=== PATIENT | female | born 1970 | race Caucasian/White ===

== ENCOUNTER 2016-09-23 12:41 | Emergency (ER) | payer OTHER ==
[~2016-09-23] VITALS: Ht 160 cm; Wt 105.2 kg
[~2016-09-23 12:41] MED LIST: SYNTHROID75 MCG PO; VITAMIN B-121000 MC2 SL; VITAMIN D-32000 UNIT PO
--- NOTE | 2016-09-23 13:27 | ED INFLUENZA/URI COMPLAINT ---
History of Present Illness General Chief Complaint: Upper Respiratory Sx/Fever Stated Complaint: SORE THROAT;URI Source: patient, old records Exam Limitations: no limitations Vital Signs & Intake/Output Vital Signs & Intake/Output Vital Signs Date Time Temp Pulse Resp B/P Pulse O2 O2 Flow FiO2 Ox Delivery Rate 09/23 1519 98.1 72 18 118/70 98 Room Air 09/23 1430 Room Air Room Air 09/23 1428 97.3 09/23 1428 97.3 09/23 1245 97.3 73 20 110/70 96 Room Air Allergies Coded Allergies: peanut (Severe, ANAPHYLAXIS 06/02/16) amoxicillin (Intermediate, RASH 06/02/16) latex (Intermediate, RASH 06/02/16) Reconcile Medications Azithromycin (Zithromax) 250 MG TABLET 1 DP PO AD BRONCHITIS 2 the first day followed by 1 for days 2-5 Levothyroxine Sodium (Synthroid) 75 MCG TABLET 1 TAB PO DAILY AC THYROID ( Reported) Robitussin AC (Guaifenesin-Codeine Syrup) 200 MG-20 MG/10 ML LIQUID 10 ML PO Q6HR PRN COUGH Triage Note: PT TO ED C/O COUGH, SORE THROAT, URI SINCE 09/19. PT WENT TO HER PCP AND WAS TOLD SHE HAD THE FLU. PT HAS BEEN TAKING OTC MEDS WITH SOME RELIEF. PT HAD STREP TEST AT PCP WHICH WAS NEGATIVE. ALSO C/O B/L EAR PAIN. NON-PRODUCTIVE COUGH. AFEBRILE. Triage Nurses Notes Reviewed? yes Onset: Gradual Duration: week(s): (1), constant Timing: recent history Severity: mild, moderate Severity Numbers: 5 Prior Episodes/Possible Cause: occassional episodes No Modifying Factors: none Associated Symptoms: cough, muscle aches, nasal congestion, nasal drainage, sore throat : No Patient currently breastfeeds: No HPI: This is a 46-year-old female who presents with a one-week history of a sore throat nonproductive cough and rhinorrhea congestion subjective chills. Patient states that she had a negative strep swab performed by her primary care physician over the weekend and was diagnosed with the flu however states she is not tested for the flu. She's been using [id number] medications without improvement in her symptoms. She does not smoke no history of asthma COPD no chest pain or shortness of breath. No abdominal pain nausea vomiting or diarrhea. She is not taken any Tylenol or ibuprofen today Past History Travel History Traveled to [place] past 21 day No Medical History Any Pertinent Medical History? see below for history Endocrine: hypothyroidism, vitamin D deficiency Surgical History Surgical History: non-contributory Psychosocial History What is your primary language Surinamese Tobacco Use: Never used ETOH Use: denies use Illicit Drug Use: denies illicit drug use Family History Hx Contributory? No Review of Systems Review of Systems Constitutional: Reports: see HPI. All Other Systems: Reviewed and Negative Comments Review of systems: See HPI, All other systems negative. Constitutional, chills no fever, no malaise HEENT: No visual changes no sore throat congestion, no ear pain Cardiovascular: No chest pain , no palpitation , Skin, no rashes, no change in skin Respiratory: No dyspnea cough no sputum no hemoptysis GI: No nausea no vomiting, no diarrhea, no bloating/constipation : No dysuria Muscle skeletal: No joint pain, no back pain, no neck pain, Neurologic: No numbness no headache Psych: No stress Heme/endocrine: No bruising no bleeding Immunology: No lymphadenopathy Physical Exam Physical Exam General Appearance: well developed/nourished, alert, awake Ears, Nose, Throat: normal ENT inspection, moist mucous membrane, hearing grossly normal, Tympanic normal Comments: Well-developed well-nourished person in no acute distress Head/Face: Atraumatic, no maxillary/frontal sinus tenderness, no facial swelling Eyes: PERRL, EOMI, no conjunctival injection. No nystagmus Ear:External auditory canal and Tympanic membranes clear, no erythema, no FB. Nose: atraumatic.Normal inspection: No bleeding, no septal hematoma Throat: Moist mucous membranes.Pharynx normal. No pharyngeal erythema/exudate seen. No stridor/drooling or assymetry. No swelling or edema. No exudate no trismus Neck: Supple, positive anterior lymphadenopathy, FROM Back: Nontender, no CVA tenderness. Full range of motion Cardiovascular: Regular rate and rhythms no murmurs rubs or gallops Respiratory: Chest nontender.There were no bony deformities, no asymmetry. No respiratory distress. Patient speaking in full complete sentences. Breath sounds clear to auscultation bilaterally: NO W/R/R Abdomen: Soft, nontender nondistended, no appreciable organomegaly. Normal bowel sounds. No rebound/guarding, Extremity: No edema, full range of motion of extremities Neuro: Alert oriented x3, motor sensory normal, There were no obvious focal neurologic abnormalities. Skin: No appreciable rash on exposed skin, skin is warm and dry. Psych: Mood and affect is normal, memory and judgment is normal. Core Measures Severe Sepsis Present: No Septic Shock Present: No Progress Differential Diagnosis: influenza, otitis, pneumonia, pharyngitis, sinusitis, PNA BRONCHITIS Plan of Care: Orders Procedure Date/time Status RAPID VIRAL INFLUENZA A 09/23 1403 Complete Microbiology 09/23 1424 NASOPHARYN: Influenza Virus A & B Rapid Smear - COMP Patient medicated with ibuprofen 800 mg. Chest x-ray ordered Discussed with the patient her x-ray includes all results NEED for supportive care. Prescription for Z-Delonte, Robitussin with codeine was provided advised close follow-up, return anytime sooner if her symptoms worsen she feels comfortable plan cleared for discharge (JEFF SINGH,KIN) Diagnostic Imaging: Viewed by Me: Radiology Read. Discussed w/RAD: Radiology Read. Radiology Impression: PATIENT: RAH PATEL PRESENT AGE : 46 PATIENT ACCOUNT NO: [id number] : 72 LOCATION: [facility] ORDERING PHYSICIAN: KIN SINGH SERVICE DATE: 09/23/16 EXAM TYPE: RAD - XRY- CHEST XRAY, PA AND LATERAL EXAMINATION: XR CHEST 2 VIEWS CLINICAL INFORMATION: Cough. COMPARISON: None. TECHNIQUE: PA and lateral radiographs of the chest were obtained. FINDINGS: No focal consolidation, pulmonary edema, or pleural effusion. The cardiomediastinal silhouette is normal. IMPRESSION: No acute cardiopulmonary disease. DICTATED BY: ALEXANDRA DRUMMOND MD DATE/TIME DICTATED: 09/23/161441 COUNSEL:ALONSO DATE/TIME TRANSCRIBED:09/23/161441 CONFIDENTIAL, DO NOT COPY WITHOUT APPROPRIATE AUTHORIZATION. <Electronically signed in Other Vendor System> SIGNED BY: ALEXANDRA DRUMMOND MD 09/23/161445 Initial ED EKG: none Departure Departure Time of Disposition: 1515 Disposition: HOME OR SELF CARE Condition: Stable Clinical Impression Primary Impression: Bronchitis Referrals: RAMESH GROSSMAN,WILLI Shane (PCP/Family) Additional Instructions: ZPAK DIRECTED, ROBITUSSIN WITH CODEINE FOR COUGH- THIS WILL MAKE YOU DROWSY. NO DRIVING OR DRINKING ALCOHOL WHILE TAKING. TYLENOL OR MOTRIN FOR PAIN. RETURN OR FOLLOW U WITH YOUR PMD WITH ANY CONCERNS. THESE WERE SENT TO YOUR PHARMACY Departure Forms: Customer Survey General Discharge Information Prescriptions: Current Visit Scripts Robitussin AC (Guaifenesin-Codeine Syrup) 10 ML PO Q6HR PRN COUGH #200 ML Azithromycin (Zithromax) 1 DP PO AD #6 TAB 2 the first day followed by 1 for days 2-5
--- NOTE | 2016-09-23 14:46 | RADIOLOGY REPORT ---
EXAMINATION: XR CHEST 2 VIEWS CLINICAL INFORMATION: Cough. COMPARISON: None. TECHNIQUE: PA and lateral radiographs of the chest were obtained. FINDINGS: No focal consolidation, pulmonary edema, or pleural effusion. The cardiomediastinal silhouette is normal. IMPRESSION: No acute cardiopulmonary disease.
[2016-09-23] MEDS ORDERED: ZITHROMAX250 M2 PO (15:17)
[2016-09-23] MEDS ORDERED: GUAIFENESIN-COD10 ML PO (15:17)
[2016-09-23 15:19] VITALS: BP 118/70
== END 2016-09-23 15:19 ==
LOC: ERH 12:41
DX: J40 Bronchitis, not specified as acute or chronic (principal)
CPT/HCPCS: 87804; 87804-59